=== PATIENT | male | born 1945 | race Caucasian/White ===

== ENCOUNTER → 2017-11-27 10:34 | Outpatient (CLI) | payer MEDICARE, OTHER, SELFPAY ==
--- NOTE | 2017-11-27 | DI.ECHO.S_ITS ---
[place] +---------+ : : [address] : : : : [id number] : : : : Phone: [phone]+ Echocardiogram Report + + :Name: MICHAEL RUTLEDGE Study Date: 11/27/2017 Height: 69 in : :[facility] Weight: 190 lb : : Gender: Male BSA: 2.0 m2 : :: 1945 Age: 72 yrs BP: 170/90 mmHg: :Reason For Study: Hypertension : : Performed By: Margo Christianson : :Referring: DINESH ZHENG : + + Interpretation Summary 1) Normal left ventricular thickness, size, wall motion, and systolic function (EF 55-60%). 2) Normal right ventricular size and function. 3) The left atrium is severely dilated. 4) There is mild to moderate mostly late systolic mitral regurgitation. Consider repeat echo in 2 years. 5) Hypertension present during the study (BP 170/90mmHg). Recommend further optimizing BP control. 6) No prior Echo available for comparison. Procedure: The study quality was technically good. There is no prior echocardiogram noted for this patient. The heart rate ranged between 57-60 bpm during the study. Left Ventricle: The left ventricle is normal in size. There is normal left ventricular wall thickness. The ejection fraction is estimated to be 55-60%. Left ventricular systolic function is normal without focal wall motion abnormalities. Unable to assess diastolic function as mitral inflow velocities were not done. Right Ventricle: The right ventricle grossly appears normal in size with probable normal systolic function. Atria: The left atrium is severely dilated. The right atrium is mildly dilated. The interatrial septum is intact with no evidence for an atrial septal defect. Mitral Valve: The mitral valve leaflets appear mildly thickened, but open well. The mitral valve leaflets are mildly calcified. There is mild to moderate mitral regurgitation. Aortic Valve: The aortic valve is trileaflet. The aortic valve opens well. There is no aortic valve stenosis. There is trace aortic regurgitation. Tricuspid Valve: The tricuspid valve leaflets are thin and pliable. There is mild tricuspid regurgitation. The right ventricular systolic pressure is estimated at 34 mmHg assuming a right atrial pressure of 3 mm Hg. Pulmonic Valve: The pulmonic valve is not well seen, but is grossly normal. There is trace pulmonic regurgitation. Great Vessels: The aortic root is mildly dilated. The ascending aorta is at the upper limits of normal in size. The IVC is of normal diameter and collapses greater than 50% with a sniff. This suggests a low right atrial pressure of 3 mm Hg. Pericardium/ Pleura There is no pericardial effusion. There is no pleural effusion. MMode/2D Measurements & Calculations LVIDd: 5.5 cm Ao root diam: 3.9 cm LVIDs: 4.2 cm Aortic Jxn: 3.0 cm FS: 25.1 % asc Aorta Diam: 3.7 cm EPSS: 1.1 cm Ao Arch Diam (Prox Trans): 3.4 cm IVSd: 1.0 cm LVPWd: 0.91 cm LV viramontes. diameter/BSA (cm/m^2): 2.7 LV sys. diameter/BSA (cm/m^2): 2.1 LA dimension: 4.4 cm RA long axis: 5.7 cm LA A2 area: 26.4 cm2 RA area: 24.0 cm2 LA A4 area: 29.9 cm2 RA vol: 85.8 ml LA length (vol): 6.4 cm RA : 42.5 ml/m2 LA vol: 104.6 ml IVC diam: 1.7 cm LA vol index: 51.8 ml/m2 RVDd major: 5.9 cm RVD1 (basal): 4.2 cm RVD2 (mid): 3.6 cm Doppler Measurements & Calculations Ao V2 max: 118.4 cm/sec Med Peak E' Bill: 4.0 cm/sec Ao V2 mean: 78.3 cm/sec Lat Peak E' Bill: 8.3 cm/sec Ao max P.6 mmHg MR ERO: 0.17 cm2 Ao mean P.9 mmHg Ao V2 VTI: 27.4 cm TR max bill: 283.9 cm/sec MR flow rate: 106.0 cm3/sec TR max P.2 mmHg MR PISA radius: 0.67 cm PA V2 max: 64.0 cm/sec PA V2 mean: 42.8 cm/sec PA mean P.88 mmHg PA Accel Time: 0.15 sec Reading Physician:02:07 PM
== END ==
PROVIDERS: Family Provider Internal Medicine; PCP Internal Medicine; Visit Provider Internal Medicine
DX: I08.1 Rheumatic disorders of both mitral and tricuspid valves (principal); I10 Essential (primary) hypertension
CPT/HCPCS: 93306

== ENCOUNTER 2018-10-11 07:56 | Day surgery (SDC) | payer MEDICARE, OTHER, SELFPAY ==
[2018-10-11 08:20] VITALS: BP 153/92; PULSE 72; RESP 16; TEMP 36.6; O2SAT 96; BMI 26.6
[2018-10-11] MEDS: SODIUM CHLORIDE 0.9% 1,000 ML 200 ML IV (08:25)
--- NOTE | 2018-10-11 08:35 | PM.HP.1 ---
History of Present Illness Date Patient Seen: 10/11/18 Time Patient Seen: 08:35 Chief complaint: [id number] Narrative: Here for screening colonoscopy had a polyp 5 years ago which was benign Meds Home Medications Medication Instructions Recorded Confirmed Type [TUMIREC] #0 06/11/17 History diclofenac sodium 50 mg PO AMCC #0 06/11/17 10/11/18 History olmesartan [Benicar] 40 mg PO QDAY #0 06/11/17 10/11/18 History amlodipine 5 mg PO DAILY 10/11/18 10/11/18 History Allergies Allergy/AdvReac Type Severity Reaction Status Date / Time No Known Allergies Allergy Uncoded 10/11/18 08:26 Review of Systems Review of Systems All systems reviewed & are unremarkable except as noted in HPI and below Exam Vital Signs (past 8 hours): - 10/11/18 08:20 Temperature 97.9 F Pulse Rate 72 Respiratory Rate 16 Blood Pressure 153/92 H Pulse Oximetry 96 Oxygen Delivery Method Room Air Narrative Exam Narrative: Patient is alert and oriented has no pain. Lungs are clear with no rales or wheezes Heart regular rhythm no murmur today although he states he has a history of a murmur I do not hear it. Abdomen is soft nontender no organomegaly. Rectal will be done at time of colonoscopy Assessment & Plan Assessment & Plan narrative: Patient is here for screening colonoscopy is asymptomatic had a polyp removed 5 years ago. He understands procedure and has no further questions
--- NOTE | 2018-10-11 09:06 | SUR.OPER ---
0852 RESPITORY DEPRESSION..O2 SAT IN LOW 80S, ORAL AIRWAY INSERTED AND O2 INCREASED, O2 SAT IMPROVED, AND PATIENT BREATHING 6 TO 8 BREATHS A MIN. TO PACU WITH ORAL AIRWAY
[2018-10-11 09:09] VITALS: BP 115/67; PULSE 62; RESP 12; TEMP 36.9; O2SAT 93
[2018-10-11 09:10] VITALS: BP 106/73; PULSE 70; RESP 13; O2SAT 95
[2018-10-11] MEDS: fentaNYL 250 MCG/5 ML INJ IV (09:11)
--- NOTE | 2018-10-11 09:11 | PM.OP.ENDO ---
Operative Date/Time/Diagnoses Date of procedure: 10/11/18 Time of procedure: 09:12 Pre-op diagnosis: Screening colonoscopy Post-op diagnosis: same Procedure & Clinicians Study performed: Total colonoscopy to the cecum Same procedure as scheduled: Yes Surgeon: Tirso Hanley Procedure Notes SCOAP/Timeout: Was done Procedure in detail: The patient was properly identified during surgical pause was given a total of 4 mg of Versed and 200 micro g of fentanyl throughout the procedure which was very well tolerated. The flexible fiberoptic colonoscope inserted transanally to the cecum the patient has no polyps no tumors no ulcerations no diverticulosis the procedure was well tolerated Scope withdrawal time: 10 Sedation minutes: 20 Specimen(s): none sent Impression: Normal colonoscopy today. Recommendations: Colonscopy in 10 years Disposition: PACU
[2018-10-11] MEDS: MIDAZOLAM 5 MG/5 ML VIAL IV (09:12)
[2018-10-11 09:15] VITALS: BP 108/78; BP 129/79; PULSE 69; PULSE 76; RESP 16; RESP 18; O2SAT 97
[2018-10-11 09:20] VITALS: BP 115/82; PULSE 68; RESP 17; O2SAT 97
--- NOTE | 2018-10-11 09:21 | SUR.PHASEI ---
Pt. admitted into PACU with oral airway inplace, O2 placed at 2L with NC prongs into oral airway. Pt. did respond to verbal stimuli, at which time oral airway removed and NC placed into nares. VVS, skin W/P/D.
== END 2018-10-11 10:00 | disposition home or self-care (01) ==
PROVIDERS: PCP Internal Medicine; Visit Provider Surgery
PROC: 0DJD8ZZ Inspection of Lower Intestinal Tract, Via Natural or Artificial Opening Endoscopic (ICD-10-PCS; CPT 45378; principal; 2018-10-11 09:15)
DX: Z86.010 Personal history of colon polyps (principal)
CPT/HCPCS: G0105; 99152; J2250; J3010

== ENCOUNTER → 2019-08-09 08:26 | Outpatient (CLI) | payer MEDICARE, OTHER, SELFPAY ==
[2019-08-09 09:18] LABS: Add Manual Diff / Slide Review NO; Basophils Absolute Auto 100 /uL (0-100); Eosinophils Absolute Auto 400 /uL (0-450); Hemoglobin 14.9 g/dL (13.5-17.5); Lymphocytes Absolute Auto 1500 /uL (1100-4500); Lymphocytes Percent Auto 24.8 % (25-40); Mean Corpuscular HGB Conc 34.5 % (30-36); Mean Corpuscular Hemoglobin 30.8 PG (26-34); Mean Corpuscular Volume 89.2 fL (80-100); Monocytes Absolute Auto 600 /uL (0-900); Neutrophils Absolute Auto 3400 /uL (1500-7000); Neutrophils Percent Auto 58.2 % (50-75); Platelet Count 167 X10^3/uL (150-400); Red Blood Cell Count 4.82 X10^6/uL (4.5-5.9); Red Cell Distribution Width 13.8 % (11.6-14.8); White Blood Cell Count 5.9 X10^3/uL (4.5-11.0)
[2019-08-09 09:38] LABS: Alanine Aminotransferase 22 IU/L (<50); Albumin 4.2 g/dL (3.5-5.0); Albumin Globulin Ratio 1.6 (1.0-2.8); Alkaline Phosphatase 73 U/L (38-126); Aspartate Aminotransferase 33 IU/L (17-59); BUN Creatinine Ratio 20.9 (6-22); Blood Urea Nitrogen 18 mg/dL (9-20); Calcium 9.8 mg/dL (8.4-10.2); Carbon Dioxide 26 mmol/L (22-32); Chloride 104 mmol/L (98-107); Cholesterol 204 mg/dL (140-199); Estimated Glomerular Filt Rate > 60.0 mL/min (>60); Globulin 2.7 g/dL (1.7-4.1); Glucose 98 mg/dL (80-110); HDL Cholesterol 36 mg/dL (40-60); HEMOLYSIS < 15 (0-50); LDL Cholesterol Calculated 147 mg/dL (<100); Potassium 4.3 mmol/L (3.4-5.1); Sodium 138 mmol/L (137-145); Total Protein 6.9 g/dL (6.3-8.2); Triglycerides 104 mg/dL (35-150)
== END ==
PROVIDERS: PCP Internal Medicine; Referring Provider Internal Medicine; Visit Provider Internal Medicine
DX: I10 Essential (primary) hypertension (principal); M15.0 Primary generalized (osteo)arthritis; I34.9 Nonrheumatic mitral valve disorder, unspecified
CPT/HCPCS: 36415; 80053; 80061; 85025

== ENCOUNTER → 2019-10-14 08:28 | Outpatient (CLI) | payer MEDICARE, OTHER, SELFPAY ==
[2019-10-14 10:06] LABS: Cholesterol 183 mg/dL (140-199); HDL Cholesterol 41 mg/dL (40-60); LDL Cholesterol Calculated 121 mg/dL (<100); Triglycerides 106 mg/dL (35-150)
== END ==
PROVIDERS: PCP Internal Medicine; Referring Provider Internal Medicine; Visit Provider Internal Medicine
DX: E78.2 Mixed hyperlipidemia (principal)
CPT/HCPCS: 36415; 80061

== ENCOUNTER 2019-12-13 12:29 | Emergency (ER) | payer MEDICARE, OTHER, SELFPAY ==
[2019-12-13 12:36] VITALS: BP 186/85; PULSE 67; RESP 14; TEMP 36.9; O2SAT 99
--- NOTE | 2019-12-13 12:44 | ED_ITS ---
HPI - Fall General Chief Complaint: Fall Stated Complaint: right shoulder injury Time Seen by Provider: 12/13/19 12:32 Source: patient Mode of arrival: Ambulatory Limitations: no limitations History of Present Illness HPI Narrative: 74-year-old male here for evaluation of right shoulder injury. Patient states that he tripped over some wires that he was working around earlier today and he fell onto his right shoulder. He states that he tucked his arm against his side when he fell so he landed on the outside of his arm. He did not hit his head. No loss of consciousness. But some ?KT ?tape over the area. No elbow wrist or neck pain. Related Data Home Medications Medication Instructions Recorded Confirmed [TUMIREC] #0 06/11/17 diclofenac sodium 50 mg PO AMCC #0 06/11/17 10/11/18 olmesartan [Benicar] 40 mg PO QDAY #0 06/11/17 10/11/18 amlodipine 5 mg PO DAILY 10/11/18 10/11/18 Previous Rx's Medication Instructions Recorded tramadol [Ultram] 50 mg PO Q8H PRN #10 tab 12/13/19 Allergies Allergy/AdvReac Type Severity Reaction Status Date / Time No Known Allergies Allergy Uncoded 10/11/18 08:26 Review of Systems Constitutional Constitutional: Denies frequent falls and Denies headache(s) ENT Ears, Nose, Mouth, and Throat: Denies headache(s) Cardiovascular Cardiovascular: Denies chest pain and Denies dyspnea Respiratory Respiratory: Denies dyspnea Gastrointestinal Gastrointestinal: Denies abdominal pain Musculoskeletal Musculoskeletal: Denies tingling Comments: Right shoulder pain Integumentary/Breasts Skin/Breast: Denies rash Neurologic Neurologic: Denies behavioral changes, Denies frequent falls, Denies headache(s) and Denies tingling Psychiatric Psychiatric: Denies behavioral changes Hematologic/Lymphatic Hematologic/Lymphatic: Denies easy bleeding and Denies easy bruising Patient History Medical History Flu (Inactive) Social History lives independently: Yes Exam Initial Vital Signs Initial Vital Signs: Vital Signs Temperature 98.5 F 12/13/19 12:36 Pulse Rate 67 12/13/19 12:36 Respiratory Rate 14 12/13/19 12:36 Blood Pressure 186/85 H 12/13/19 12:36 Pulse Oximetry 99 12/13/19 12:36 Const General: cooperative Limitations: mental status not altered HENMT Head: normal to inspection and normocephalic Resp Effort & Inspection: normal respiratory effort Back/Spine/Pelvis Cervical Spine: No cervical spinal tenderness Skin Lesions: no lesions Rashes: no rashes Neuro Sensory Exam: no sensory deficits noted Extrem General: capillary refill normal Other: Right elbow and right wrist unremarkable. Patient very difficult time moving the right shoulder secondary to pain. Course Orders Ordered: ED Orders 12/13/19 12:42 XR shoulder RT min 2V Stat Vital Signs Vital signs: Vital Signs - 8 hr 12/13/19 12:36 Temperature 98.5 F Pulse Rate 67 Respiratory Rate 14 Blood Pressure 186/85 H Pulse Oximetry 99 MDM - Fall Imaging Data Extremity x-ray #1: Radiologist's Impression: [address] [address] XRay Report Signed Patient: Portillo Medina BMR#: [id number] : 6Acct:[id number] Age/Sex: 74 / MDate of Service: 12/13/19 Loc: ED Accession Number: [id number] Procedure: XR shoulder RT min 2V Ordering Provider: Scott Pablo D.O. PROCEDURE: XR SHOULDER RT MIN 2V INDICATIONS: pain after fall TECHNIQUE: 3 views of the shoulder were acquired. COMPARISON: [facility], , CHEST 2 VIEW, 06/11/2017, 7:58. FINDINGS: Bones: No fractures or dislocations. There is moderate acromioclavicular joint degeneration. No suspicious bony lesions. Visualized ribs appear intact. Soft tissues: No suspicious soft tissue calcifications. The visualized right lung demonstrates a right perihilar nodular opacity measuring up to 2.0 cm. IMPRESSION: 1. No fracture or dislocation. 2. Right perihilar nodular opacity demonstrated in the visualized right lung. Although this may represent a prominent vessel on end, a pulmonary nodule cannot be excluded. Recommend dedicated chest x-ray for further evaluation. 3. Moderate acromioclavicular joint degeneration. Dictated by: Maurice Lau M.D. on 12/13/2019 at 12:09 Approved by: Maurice Lau M.D. on 12/13/2019 at 12:20 MDM Narrative Medical decision making narrative: Patient neurovascularly intact. X-ray shows no fracture dislocation. Patient did have quite a bit of discomfort with even minor movements of his shoulder so I felt that holding on further workup to evaluate a potential soft tissue injury to include rotator cuff or biceps tendon injury would not be beneficial here in the ER. I did discuss this with him. He has a follow-up with his primary doctor next week. Patient already had a sling. He was sent home with a sling. We did discuss it is important that he comes out of the sling as much as possible. We did discuss anti-inflammatories. No other injuries were reported from the fall per the patient and also on exam. He was given return precautions and follow-up instructions. He expressed understanding and agreement. Discharge Plan Departure Patient Disposition: Home Clinical Impression: Injury of right shoulder Qualifiers: Encounter type: initial encounter Qualified Code(s): S49.91XA - Unspecified injury of right shoulder and upper arm, initial encounter Discharge Date/Time: 12/13/19 14:15 Instructions: How to Use a Sling, How To Perform RICE (Rest, Ice, Compress, Elevate), DI for Shoulder Pain Activity Restrictions/Additional Instructions: Recommend that you use the sling for your comfort. You can take it off to shower. I do recommend that you spend as much time out of the sling as possible. Take the medication as directed. Keep your appointment with your primary doctor tomorrow. Return to the emergency department for any new or worsening symptoms Prescriptions: New tramadol [Ultram] 50 mg tablet 50 mg PO Q8H PRN (Reason: pain) Qty: 10 RF: 0 No Action diclofenac sodium 50 MG tablet,delayed release (DR/EC) 50 mg PO AMCC Qty: 0 RF: 0 olmesartan [Benicar] 40 MG tablet 40 mg PO QDAY Qty: 0 RF: 0 [TUMIREC] Qty: 0 RF: 0 amlodipine 5 mg Tablet 5 mg PO DAILY RF: 0 Referrals: Jorden Elizondo MD [Primary Care Provider] -
== END 2019-12-13 14:15 | disposition home or self-care (01) ==
PROVIDERS: Emergency Provider Emergency Medicine; PCP Internal Medicine
DX: S49.91XA Unspecified injury of right shoulder and upper arm, initial encounter (principal); W19.XXXA Unspecified fall, initial encounter
CPT/HCPCS: 73030; 99283

== ENCOUNTER → 2019-12-16 08:38 | Outpatient (CLI) | payer MEDICARE, OTHER, SELFPAY ==
[2019-12-16 09:08] LABS: Add Manual Diff / Slide Review NO; Basophils Absolute Auto 100 /uL (0-100); Basophils Percent Auto 0.9 % (0-2); Eosinophils Absolute Auto 300 /uL (0-450); Eosinophils Percent Auto 4.2 % (2-4); Hematocrit 42.7 % (41-53); Hemoglobin 14.7 g/dL (13.5-17.5); Lymphocytes Absolute Auto 1700 /uL (1100-4500); Lymphocytes Percent Auto 23.2 % (25-40); Mean Corpuscular HGB Conc 34.5 % (30-36); Mean Corpuscular Hemoglobin 31.2 PG (26-34); Mean Corpuscular Volume 90.3 fL (80-100); Monocytes Absolute Auto 700 /uL (0-900); Monocytes Percent Auto 9.8 % (3-14); Neutrophils Absolute Auto 4400 /uL (1500-7000); Neutrophils Percent Auto 61.9 % (50-75); Platelet Count 159 X10^3/uL (150-400); Red Blood Cell Count 4.73 X10^6/uL (4.5-5.9); Red Cell Distribution Width 13.4 % (11.6-14.8); White Blood Cell Count 7.1 X10^3/uL (4.5-11.0)
[2019-12-16 09:28] LABS: Alanine Aminotransferase 22 IU/L (<50); Albumin Globulin Ratio 1.4 (1.0-2.8); Alkaline Phosphatase 71 U/L (38-126); Aspartate Aminotransferase 34 IU/L (17-59); BUN Creatinine Ratio 23.8 (6-22); Bilirubin Total 1.2 mg/dL (0.2-1.3); Blood Urea Nitrogen 20 mg/dL (9-20); Carbon Dioxide 29 mmol/L (22-32); Chloride 105 mmol/L (98-107); Cholesterol 198 mg/dL (140-199); Estimated Glomerular Filt Rate > 60.0 mL/min (>60); Globulin 2.8 g/dL (1.7-4.1); Glucose 96 mg/dL (80-110); HDL Cholesterol 40 mg/dL (40-60); HEMOLYSIS < 15 (0-50); LDL Cholesterol Calculated 136 mg/dL (<100); Potassium 4.3 mmol/L (3.4-5.1); Sodium 138 mmol/L (137-145); Total Protein 6.8 g/dL (6.3-8.2); Triglycerides 108 mg/dL (35-150)
== END ==
PROVIDERS: PCP Internal Medicine; Referring Provider Internal Medicine; Visit Provider Internal Medicine
DX: E78.2 Mixed hyperlipidemia (principal); I10 Essential (primary) hypertension; M15.0 Primary generalized (osteo)arthritis
CPT/HCPCS: 36415; 80053; 80061; 85025

== ENCOUNTER → 2020-03-20 18:45 | Outpatient (ROUT) | payer MEDICARE, OTHER, SELFPAY ==
[2020-03-20 19:03] LABS: Add Manual Diff / Slide Review NO; Basophils Absolute Auto 100 /uL (0-100); Basophils Percent Auto 0.7 % (0-2); Eosinophils Absolute Auto 300 /uL (0-450); Eosinophils Percent Auto 3.6 % (2-4); Hematocrit 43.6 % (41-53); Hemoglobin 14.7 g/dL (13.5-17.5); Lymphocytes Absolute Auto 2000 /uL (1100-4500); Lymphocytes Percent Auto 23.9 % (25-40); Mean Corpuscular HGB Conc 33.6 % (30-36); Mean Corpuscular Hemoglobin 30.9 PG (26-34); Mean Corpuscular Volume 91.8 fL (80-100); Monocytes Absolute Auto 800 /uL (0-900); Monocytes Percent Auto 9.5 % (3-14); Neutrophils Absolute Auto 5200 /uL (1500-7000); Neutrophils Percent Auto 62.3 % (50-75); Platelet Count 192 X10^3/uL (150-400); Red Blood Cell Count 4.75 X10^6/uL (4.5-5.9); White Blood Cell Count 8.4 X10^3/uL (4.5-11.0)
[2020-03-20 19:16] LABS: BUN Creatinine Ratio 19.6 (6-22); Blood Urea Nitrogen 20 mg/dL (9-20); Calcium 9.2 mg/dL (8.4-10.2); Carbon Dioxide 30 mmol/L (22-32); Chloride 106 mmol/L (98-107); Estimated Glomerular Filt Rate > 60.0 mL/min (>60); Glucose 97 mg/dL (80-110); HEMOLYSIS < 15 (0-50); Potassium 4.4 mmol/L (3.4-5.1); Sodium 139 mmol/L (137-145)
== END ==
PROVIDERS: PCP Internal Medicine; Visit Provider Student in an Organized Health Care Education/Training Program
DX: Z01.818 Encounter for other preprocedural examination (principal); M48.07 Spinal stenosis, lumbosacral region
CPT/HCPCS: 80048; 85025

== ENCOUNTER → 2020-03-28 09:28 | Outpatient (CLI) | payer MEDICARE, OTHER, SELFPAY ==
[2020-03-28 10:47] LABS: COVID19 -Nasal RAPID Negative (Negative)
== END ==
PROVIDERS: PCP Internal Medicine; Visit Provider Physician Assistant
DX: Z20.822 Contact with and (suspected) exposure to COVID-19 (principal)
CPT/HCPCS: 87635

== ENCOUNTER 2020-03-31 09:35 | Inpatient (IN) | payer MEDICARE, OTHER, SELFPAY ==
[2020-03-31] VITALS (16 sets, daily range): BP systolic 95–166; BP diastolic 57–90; PULSE 64–83; RESP 8–18; TEMP 36.7–37.4; O2SAT 84–100; BMI 28.3
--- NOTE | 2020-03-31 | DI.RAD.S_ITS ---
PROCEDURE: XR LUMBAR SPINE 2-3V INDICATIONS: L5-S1 FUSION TECHNIQUE: 2 views of the lumbar spine were acquired. COMPARISON: None. FINDINGS: Intraoperative images demonstrate posterior fusion at L5-S1. Intervertebral prosthetic disc is noted. There is good anatomic alignment. IMPRESSION: L5-S1 fusion. Dictated by: Romelia Marie M.D. on 03/31/2020 at 17:22 Approved by: Romelia Marie M.D. on 03/31/2020 at 17:22
[2020-03-31] MEDS: LACTATED RINGERS 1,000 ML 42 ML IV ×2 (10:29→13:06)
--- NOTE | 2020-03-31 10:59 | PM.PREOP ---
Pre-operative Note COVID-19 COVID-19 status: Negative Result date/Date tested (Pos, Neg/Pending): 03/28/20 Interval Note History & Physical reviewed/Exam performed by Physician: Yes Changes to H&P: No
[2020-03-31] MEDS: CEFAZOLIN 2 GM/100 ML FROZ.PIGGY IV ×2 (12:00→20:46)
[2020-03-31] MEDS: BUPIVACAINE 0.5% (PF) 4 ML, MORPHINE-PF 4 MG, BUTORPHANOL 1 MG, fentaNYL 100 MCG INJ (12:30)
--- NOTE | 2020-03-31 12:47 | SUR.OPER ---
Prone on spine table, head in foam head support, padded chest and pelvic supports, gel pad at knees, lower legs supported by pillows; nipples, genitalia and toes free of pressure, arms secured on foam padded arm boards at <90 degrees abduction. Tape over blanket at thigh secured to table.
[2020-03-31] MEDS: THROMBIN (RECOMBINANT) 5,000 UNIT VIAL 5000 UNIT TOP (13:08)
[2020-03-31] MEDS: SODIUM CHLORIDE 0.9% 1,000 ML, GENTAMICIN 80 MG IRR (13:09)
[2020-03-31] MEDS: VANCOMYCIN 1,000 MG VIAL 1000 MG TOP (13:17)
--- NOTE | 2020-03-31 16:00 | P.OP_ITS ---
Operative Date/Time/Diagnoses Date of procedure: 03/31/20 Time of procedure: 16:00 Pre-op diagnosis: Lumbar stenosis with radiculopathy Post-op diagnosis: same Procedure & Clinicians Procedure: L2-3, L3-4, L4-5, L5-S1 laminectomy L5-S1 TLIF (posterior/posterior interbody fusion) with cage L5-S1 screws Iliac crest bone graft aspirate Use of microscope Placement of epidural catheter Same procedure as scheduled: Yes Indications: [age] year old [] with intractable pain from stenosis. They had failed conservative management and requested operative intervention. Risks and benefits of surgery were discussed and appropriate consents were obtained. Surgeon: Silver Odom [employer] Sciences Director: Merlene Flood Anesthesia Type: General Operative Notes Findings: None Closure Type: primary Specimen(s): none sent Prosthetic devices, grafts, tissues, transplants, or devices: NuVasive MAS Reline screws Globus Rise cage Applied: catheter Estimated Blood Loss (mL): 50 Procedure in detail: The patient was brought to the operating room and intubated on the table. A time-out was performed. They were then rolled over to the well-padded Inocencio table in the prone position. Preoperative antibiotics were given. The back was prepped and draped in the standard sterile fashion. Using fluoroscopy, a 10 cm longitudinal incision was made to the lumbar type of the midline. We used Bovie to come down to and split the lumbodorsal fascia. Using fluoroscopy and monitoring, we then percutaneously placed Jamshidi needles down the pedicles of L5 and S1 on the left side. These were changed out to guidewires and then we tapped and then placed the NuVasive MAS Reline screw shanks. We then opened up the retractors and used Bovie to clear up the posterolateral gutter as well as medially along the lamina to the spinous processes. A bur was used to decorticate the transverse processes. We brought in the microscope. Using a combination of bur and Kerrison rongeurs, a laminectomy was performed from the left side. He had massive ingrowth from his facets that were slowly cleared out in the canal to clear out the S1 roots. We cleared over past the midline and carefully depressed the dura until we were able to decompress the opposite side. We cleared out the neural foramen which required a complete facetectomy until the nerve root was finally exposed. This was separate and distinct from the TLIF approach as we were decompressing the canal with the S1 roots as well as the exiting L5 root. We then began the TLIF prep. We carefully cleaned up the remainder of the foramen until we could easily retract the exiting root as well as clearing medially below the dura and expose the disc space. The disc was prepped with bipolar and then an annulotomy was performed. He had some posterior overgrowth of of the osteophyte and this was removed until we could expose the disc space. We performed a diskectomy using a combination of paddles, aleyda, pituitaries, and curettes. We distracted the disc using a paddle and locked the retractor in an open position. We then filled the disc space with Osteocel bone graft. We then placed the globus rise cage under fluoroscopy and then filled this in with more bone graft. The distraction on the retractor was released to compress down. This completed the posterior interbody fusion portion of the TLIF at L5- S1. We then opened up our retractor at the L4-5 level and and confirm positioning. We performed a laminectomy at this level, carefully depressing the dura and clearing across the midline to open up the entire canal with the traversing L5 and S1 roots as well as clearing out the foramen with the exiting L4 roots. We then moved up to the L3-4 level and also performed a laminectomy here, clearing across the midline and freeing up all the central canal with the L4 through S1 traversing roots as well as the exiting L3 roots. We then moved to the L2-3 level also performed laminectomy, clear across the midline, freeing up the canal with the L3 through S1 traversing roots as well as the exiting L2 roots. An epidural catheter was then prepped with 4 mL of 0.5% Marcaine, 1 mg Stadol, 4 mg Duramorph, and 100 mcg of fentanyl and placed in the spinal canal by carefully depressing the dura and advancing it 6 cm cephalad under the remaining lamina without resistance. We then placed the screw heads, jeancarlos, and locked down the set screws. The wound was copiously irrigated. A small stab incision was made over the PSIS. We used a Jamshidi needle to aspirate several mL of bone marrow from the pelvis. This was mixed with the remaining Osteocel and combined with all of the locally harvested bone graft and placed in the posterolateral gutter for the posterior fusion of the TLIF at L5- S1. The muscle fascia was closed. The epidural catheter was then injected without resistance and the catheter was pulled. We then went to the opposite side. Again using fluoroscopy, a 3 cm incision was made and Bovie was used to come down to split the fascia. Using neural monitoring and fluoroscopy, Jamshidi needles were advanced down the pedicles of L5 and S1 on the right side. These were switched over guidewires, tapped, and screws placed. We then placed a jeancarlos and locked the set screws on this side. The wound was irrigated. The fascia was closed. Vancomycin powder was placed in the wounds. The superficial and skin were closed. A sterile dressing was placed. The patient was then rolled over extubated and brought to recovery room without complications. Complications: none Post-operative Condition: stable Disposition: PACU Plan for aftercare: Inpatient. Up with PT.
[2020-03-31] MEDS: LACTATED RINGERS 1,000 ML 125 ML IV (17:52)
[2020-03-31] MEDS: CELECOXIB 200 MG CAPSULE 400 MG PO (18:01)
[2020-03-31] MEDS: DOCUSATE 100 MG CAPSULE PO (20:47)
[2020-03-31] MEDS: MAGNESIUM OXIDE 400 MG TABLET PO (20:47)
[2020-03-31] MEDS: GABAPENTIN 300 MG CAPSULE PO (20:47)
[2020-03-31] MEDS: CELECOXIB 200 MG CAPSULE PO (21:02)
[2020-03-31] MEDS: OXYCODONE IR 10 MG TABLET PO (21:52)
[2020-04-01] VITALS (7 sets, daily range): BP systolic 105–148; BP diastolic 59–77; PULSE 68–98; RESP 15–17; TEMP 36.6–37.6; O2SAT 92–98
[2020-04-01] MEDS: LACTATED RINGERS 1,000 ML 125 ML IV (02:08)
[2020-04-01] MEDS: OXYCODONE IR 10 MG TABLET PO ×6 (02:56→20:18)
[2020-04-01] MEDS: CEFAZOLIN 2 GM/100 ML FROZ.PIGGY IV (04:04)
[2020-04-01 05:20] LABS: Hematocrit 36.1 % (41-53)
--- NOTE | 2020-04-01 07:21 | PM.PNPO.1 ---
Subjective Subjective Date Patient Seen: 04/01/20 Time Patient Seen: 07:21 Interval history: He is doing well. Pain is about 4/10. Exam Vital Signs (past 8 hours): - 03/31/20 23:55 04/01/20 04:00 Temperature 99 F 98.5 F Pulse Rate 79 98 H Respiratory Rate 18 16 Blood Pressure 95/57 L 113/69 Pulse Oximetry 97 98 Oxygen Delivery Method Room Air Oxygen Flow Rate 0 Const Orientation: alert and oriented x3 Back/Spine/Pelvis Other: Mild dry drainage. 5/5 motor both lower extremities Objective Labs Result Diagrams: 04/01/20 04:58 Labs: Laboratory Results - last 24 hr 04/01/20 04:58 Hgb 12.0 L Hct 36.1 L PFSH Medical History (Updated 03/25/20 @ 15:54 by Magali Garcia RN) Back pain Bradycardia Cataract (lens) fragments in eye following cataract surgery, bilateral Flu Hypertension Lumbar stenosis with neurogenic claudication Osteoarthritis Strain of lumbar region Surgical History (Updated 03/25/20 @ 16:04 by Magali Garcia RN) History of eye surgery History of total shoulder replacement (~2017) S/P epidural steroid injection Social History household members: spouse lives independently: Yes Smoking Status: Former smoker alcohol intake: current Assessment & Plan Post-op Postoperative Procedures: Procedures Operation Date: 03/31/20 11:15 Actual Procedures Side Surgeon p L2-S1 laminectomies, L5-S1 instrumented fusion w/bone graft Silver Odom MD He is doing well. Mobilize with physical therapy. Anticipate discharge tomorrow. Quality VTE Deep Vein Thrombosis/Pulmonary Embolism Present on Admission: No
[2020-04-01] MEDS: CELECOXIB 200 MG CAPSULE PO ×2 (09:32→20:20)
[2020-04-01] MEDS: DOCUSATE 100 MG CAPSULE PO ×2 (09:32→20:18)
[2020-04-01] MEDS: MULTIVITAMIN 1 TABLET 1 TAB PO (09:33)
[2020-04-01] MEDS: ASCORBIC ACID 500 MG TABLET 1000 MG PO (09:33)
[2020-04-01] MEDS: MAGNESIUM OXIDE 400 MG TABLET PO ×2 (09:34→20:19)
--- NOTE | 2020-04-01 09:56 | PT.IIE ---
Current Diagnoses Spinal stenosis, lumbar region with neurogenic claudication (03/31/20) Strain of muscle, fascia and tendon of lower back, subsequent encounter (03/31/20) Surgery Performed Operation Date: 03/31/20 11:15 Actual Procedures p L2-S1 laminectomies, L5-S1 instrumented fusion w/bone graft - Silver Odom MD Surgical History (Last Updated 03/25/20 @ 16:04 by Magali Garcia, RN) History of eye surgery History of total shoulder replacement (~2017) S/P epidural steroid injection Medical History (Last Updated 03/25/20 @ 15:54 by Magali Garcia, RN) Back pain Bradycardia Cataract (lens) fragments in eye following cataract surgery, bilateral Flu Hypertension Lumbar stenosis with neurogenic claudication Osteoarthritis Strain of lumbar region Physical Therapy Inpatient Evaluation/Re-Eval M1 PT/OT-IP Prior Functional Status Start: 04/01/20 11:17 Freq: NEEDED Status: Active Protocol: Document 04/01/20 09:56 AB (Rec: 04/01/20 11:36 AB [id number]) Medical Review Prior Functional Status Medical History Reviewed Yes Communication able to make needs known Mobility and Gait pt stated that he is independent with all mobilities and ambulation without AD Social History Household Members spouse Living Arrangements House Number of Floors (Floors) One Floor Number of Stairs To Enter/Railing? 5 steps to enter with B rails Home Environment Standard Height Toilet,Walk in Shower,Built-In Shower Seat Home Equipment Straight Cane,Crutches,Hand Held Shower Employment Status Retired Additional Social History Comment stated that he has bedcanes that he can install in his bed if needed M2 PT-IP Current Condition Start: 04/01/20 11:17 Freq: NEEDED Status: Active Protocol: Document 04/01/20 09:56 AB (Rec: 04/01/20 11:36 AB [id number]) Physical Therapy Current Condition Current Condition Evaluation Date 04/01/20 Treatment Diagnosis s/p L5S1 fusion; L2-S1 lami; difficulty in walking Onset Date 03/31/20 Precautions Lumbar Precautions Log Roll,No Twisting,Limit Bending,Lifting Restriction of 10 lbs,Gait Belt above Incisional Area M3 PT-IP Subjective Start: 04/01/20 11:17 Freq: NEEDED Status: Active Protocol: Document 04/01/20 09:56 AB (Rec: 04/01/20 11:36 AB [id number]) Subjective Physical Therapy Visit Type Type Initial Evaluation Visit Start Time 09:56 Visit Stop Time 10:39 Total Visit Minutes [address] 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 Physical Therapy Visit Comments Patient Comments pt is agreeable to do PT Therapy Pain Assessment Pain When Pain Assessed At Rest Pain Present Pain Present Pain Reported Location Back Intensity 4 Scale Used Numeric (0 - 10) Pain Management Techniques Apply Cold,Distraction, Modification of Treatment,Re- positioning,Timing of Activity with Medications M4 PT-IP Mobility and Gait Start: 04/01/20 11:17 Freq: NEEDED Status: Active Protocol: Document 04/01/20 09:56 AB (Rec: 04/01/20 11:36 AB [id number]) PT-Bed Mobility Assessment Rolling Type of Rolling Log Rolling Level of Assist Standby Assistance Supine to Sit Supine to Sit Standby Assistance PT-Transfer Assessment Sit to and From Stand Sit to and from Stand Standby Assistance Equipment Transfer Assistive Device Gait Belt Orthotic/Prosthetic Devices or Brace: No Transfers Transfer Destination Chair Transfer Technique ambulated using FWW Transfer Ability Level of Assist Standby Assistance,1 Person Assistance,Use of Upper Extremities Comments Mobility Comments educated on back precautions and log roll bed mobility. BP: 122/65. O2 sat 99% completed supine to sit SBA and cues for techniques. pt was able to sit on EOB SBA. completed sit to stand SBA and ambulated in room using FWW ~ 50 ft SBA . agreed to sit on chair. positioned on chair. call light and table placed within reach. informed pt regarding need for FWW at this time and agreed to inform his to get/ borrow one for him. Gait Assessment Gait Gait Assistance Required: Standby Assistance Distance (Feet) 50 Able to Maintain Weight Bearing Status Yes During Gait Assistive Devices Assistive Device Gait Belt,Front Wheeled Walker Orthotic/Prosthetic Devices or Brace: No Gait Deviations General Gait Pattern Antalgic,Decreased Stride Length,Decreased Feet Clearance Factors Limiting Gait Function Factors Limiting Gait Function Decreased Activity Tolerance, Decreased Strength,Limited Range of Motion,Pain,Poor Balance,Poor Safety Awareness PT-Balance Assessment Sitting Balance and Reactions Static Sitting Balance Ability Good Dynamic Sitting Balance Ability Good Standing Balance and Reactions Static Standing Balance Ability Fair Dynamic Standing Balance Ability Fair Device Used FWW M5 PT-IP Objective Assessments Start: 04/01/20 11:17 Freq: NEEDED Status: Active Protocol: Document 04/01/20 09:56 AB (Rec: 04/01/20 11:36 [id number]) Orientation Orientation/Cognition Level of Alertness Alert Orientation Name,Age,Birthday,Month,Date, Year,Day of Week,Place, Situation Language Function Ability No Deficits Noted Safety Awareness Understands Safety Issues Memory Description No Deficits Noted Gross Range of Motion Lower Extremity ROM Assessment Within Functional Limits Strength Lower Extremity Strength Assessment Within Functional Limits Coordination Assessment Gross Coordination Gross Coordination WNL Sensation Assessment Sensation Gross Sensation WNL Muscle Tone Muscle Tone WNL Yes M6 PT-IP Treatment Start: 04/01/20 11:17 Freq: NEEDED Status: Active Protocol: Document 04/01/20 09:56 AB (Rec: 04/01/20 11:36 [id number]) Physical Therapy Treatment Education Education Provided Precautions,Weight Bearing Status,Post-Op Packet,Safety M7 PT-IP Assessment and Plan Start: 04/01/20 11:17 Freq: NEEDED Status: Active Protocol: Document 04/01/20 09:56 AB (Rec: 04/01/20 11:36 [id number]) PT Summary Assessment and Plan Potential Rehabilitation Potential Good Status of Condition at Evaluation Stable Summary Impairments Pain,ROM,Strength,Balance, Coordination,Sensation,Tone, Cognition,Bed Mobility, Transfers,Gait,Activity Tolerance Assessment Summary pt requiring SBA with mobility and will have his spouse to assist him at home. informed pt regarding use of FWW and will ask his to acquire one fo him. will have to complete stair climbing training prior to d/c. Goals Bed Mobility Goal Independent Transfer Goal Independent,Front Wheeled Walker Gait Goal Independent,Front Wheel Walker Gait Distance 200 Other Goals improve ambulation using SPC SBA 200 ft up/down 5 steps B rails SBA Days to Meet Goals 5 Frequency of Treatment Frequency Of Treatment Twice a Day Treatment Plan Physical Therapy Treatment Plan Bed Mobility Training,Transfer Training,Gait Training, Therapeutic Exercise,Balance Retraining,Post Op Education, Discharge Planning,Hot or Cold Pack,Neuromuscular Re-ed, Coordination Retraining,Manual Therapy Other Recommendations and Next Treatment bed mobility, ambulation, Focus stair climbing Recommendations To Nursing Amount of Assist Needed 1 Person Assist Discharge Recommendations PT Discharge Recommendations Home with Assistance Equipment Needed for Home Before FWW Discharge Transportation Needs at Discharge Private Vehicle
--- NOTE | 2020-04-01 11:00 | OT.IP.EVAL ---
Current Diagnoses Spinal stenosis, lumbar region with neurogenic claudication (03/31/20) Strain of muscle, fascia and tendon of lower back, subsequent encounter (03/31/20) Surgery Performed Operation Date: 03/31/20 11:15 Actual Procedures p L2-S1 laminectomies, L5-S1 instrumented fusion w/bone graft - Silver Odom MD Past Medical History (Last Updated 03/25/20 @ 15:54 by Magali Garcia, RN) Back pain Bradycardia Cataract (lens) fragments in eye following cataract surgery, bilateral Flu Hypertension Lumbar stenosis with neurogenic claudication Osteoarthritis Strain of lumbar region Surgical History (Last Updated 03/25/20 @ 16:04 by Magali Garcia, RN) History of eye surgery History of total shoulder replacement (~2017) S/P epidural steroid injection Occupational Therapy Inpatient Evaluation/Re-Eval M1 PT/OT-IP Prior Functional Status Start: 04/01/20 13:18 Freq: NEEDED Status: Active Protocol: Document 04/01/20 10:34 [facility] (Rec: 04/01/20 13:30 [facility] [id number]) Medical Review Prior Functional Status Medical History Reviewed Yes Communication able to make needs known Mobility and Gait pt stated that he is independent with all mobilities and ambulation without AD Activities of Daily Living and IADL's Independent with all his ADl, IADL,and drives, Social History Household Members spouse Living Arrangements House Number of Floors (Floors) One Floor Number of Stairs To Enter/Railing? 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 (Rec: 04/01/20 13:30 [facility] [id number]) Occupational Therapy Current Condition Current Condition Evaluation Date 04/01/20 Treatment Diagnosis S/P L2-S1 laminectomies, L5- S1TLIF Diagnosis Onset Date 03/31/20 Post Operative Precautions Lumbar Precautions Log Roll,No Twisting,Limit Bending,Lifting Restriction of 10 lbs,Gait Belt above Incisional Area M3 OT- IP Subjective and Pain Start: 04/01/20 13:18 Freq: Status: Active Protocol: Document 04/01/20 10:34 [facility] (Rec: 04/01/20 13:30 [facility] [id number]) OT- Subjective Occupational Therapy Visit Type Type Initial Evaluation Visit Start Time 10:34 Visit Stop Time 11:00 Total Visit Minutes 26 Occupational Therapy Visit Comments Patient Comments Pt agreed to get up for OT eval. Patient/Caregiver Goals To go home and get back to climbing eventually. OT Pain Assessment Pain When Pain Assessed At Rest Pain Present Pain Present Pain Reported Location Back Intensity 5 Scale Used Numeric (0 - 10) M4 OT- IP ADL's Start: 04/01/20 13:18 Freq: Status: Active Protocol: Document 04/01/20 10:34 [facility] (Rec: 04/01/20 13:30 [facility] [id number]) OT [id number] Comments OT Self-Feeding Comments NOt at meeal time, should have no issues OT ADL-Grooming General Evaluation Grooming Ability Standby Assistance Areas Needing Assistance Retrieving/Set-up of Grooming Items OT ADL-Oral Care General Eval Oral Care Ability Independent Comments Oral Care Comments Initial vc to lean at hips to spit into the sink versus spit into a cup to best follow his back precautions. OT ADL-Dressing General Eval Lower Body Dressing Ability Standby Assistance Comments OT Dressing Comments Pt able to comfortably cross his legs over to del/doff his socks. Pt also has a legal referee at home if needed to assist with LB dressing needs in addition to his . OT ADL-Toileting General Evaluation Toileting Ability Standby Assistance Comments OT Toileting Comments Pt able to appropriately lean to the side to simulate wiping and good awareness to use wipes for increase ease for hygiene needs. OT ADL-Bathing Comments OT Bathing Comments Not at this time. M5 OT- IP IADL's Start: 04/01/20 13:18 Freq: Status: Active Protocol: Document 04/01/20 10:34 [facility] (Rec: 04/01/20 13:30 [facility] [id number]) OT-Instrumental Activities of Daily Living Home Safety Awareness Awareness of Need for Assistance at Home Good Awareness Ability to Problem Solve Emergency Able to Problem Solve Situations Medication Management Medication Management No Deficits Identified Money Management Money Management No Deficits Identified Meal Preparation Meal Preparation Caregiver Provides Assist Compounder Compounder Caregiver Provides Assist M6 OT- IP Functional Cognition Start: 04/01/20 13:18 Freq: Status: Active Protocol: Document 04/01/20 10:34 [facility] (Rec: 04/01/20 13:30 [facility] [id number]) Cognitive Factors Limiting Selfcare Function Cognitive Ability Level of Alertness Alert Patient Orientation Name,Age,Birthday,Month,Date, Year,Day of Week,Place, Situation Attention Span Ability Capable of Focused Attention, Capable of Sustained Attention Ability to Follow Commands Able to Follow Multi-Step Commands Cognitive Comments Cognitive Assessment Comments Pt able to states all back precautions and incorporate during needs. No cognitive deficits noted. OT- Vision and Hearing OT- Hearing Assessment OT- Hearing Assessment WFL OT- Vision Assessment Visual Acuity Glasses All The Time M7 OT- IP Mobility and Balance Start: 04/01/20 13:18 Freq: Status: Active Protocol: Document 04/01/20 10:34 [facility] (Rec: 04/01/20 13:30 [facility] [id number]) OT-Transfer Assessment Sit to and From Stand Sit to and from Stand Standby Assistance Transfers Transfer Ability Standby Assistance Technique Transfer Destination Bed,Toilet Devices Transfer Assistive Devices Gait Belt,Front Wheeled Walker Comments Mobility Comments SBA and heavy use of arms to come to standing. OT- Balance Assessment Sitting Balance and Reactions Static Sitting Balance Ability Normal Dynamic Sitting Balance Ability Normal Standing Balance and Reactions Static Standing Balance Ability Good M8 OT- IP Objective Assessments Start: 04/01/20 13:18 Freq: Status: Active Protocol: Document 04/01/20 10:34 [facility] (Rec: 04/01/20 13:30 [facility] [id number]) OT Gross Range of Motion Upper Extremity Range of Motion Assessment Within Functional Limits OT Strength Upper Extremity Strength Assessment Within Functional Limits OT-Muscle Tone Assessment Muscle Tone WNL Yes M9 OT- IP Assessment and Plan Start: 04/01/20 13:18 Freq: Status: Active Protocol: Document 04/01/20 10:34 [facility] (Rec: 04/01/20 13:30 [facility] [id number]) OT Summary Assessment and Plan Potential Rehabilitation Potential Excellent Analytic Complexity at Evaluation Low Summary OT Impairments Pain,Functional Mobility, Dressing,Toileting,Bathing, Toilet Transfers,Shower Transfers Progress Towards Goals Progressing Toward Goals Assessment Summary Pt low complexity and main barriers are steps and will need assist for IADl need at home. Pt doing well and able to incorporate back precautions well for ADl needs . Pt has a supportive to assist him at home. To try shower with pt tomorrow pending doctor's orders to shower . Goals Dressing Goal Independent Toileting Goal Independent Bathing Goal Independent Toilet Transfer Goal Independent Shower Transfer Goal Independent Patient/Caregiver Education Goal Demonstrate Post-Op Precautions Days to Meet Goals 5 Frequency of Treatment Frequency Of Treatment Once a Day Treatment Plan OT Treatment Plan ADL Training,Functional Mobility,Patient/Family Education,Discharge Planning Other Treatment Recommendations and Next shower Treatment Focus Discharge Recommendations OT Discharge Recommendations Home with Assistance Home Equipment Needs FWW Transportation Needs at Discharge Private Vehicle
--- NOTE | 2020-04-01 11:19 | CM.IDA ---
Addendum entered by ERIN Julien 04/02/20 11:45: Home today as expected. 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 Therapy has cleared pt for return home w/spouse to assist and pt has planned for home. Met w/patient, introduced role. 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 ERIN Julien
[2020-04-01] MEDS: ACETAMINOPHEN 325 MG TABLET 650 MG PO (12:42)
[2020-04-01] MEDS: AMLODIPINE 5 MG TABLET PO (12:43)
--- NOTE | 2020-04-01 13:28 | PT.IPTN ---
Current Diagnoses Spinal stenosis, lumbar region with neurogenic claudication (03/31/20) Strain of muscle, fascia and tendon of lower back, subsequent encounter (03/31/20) Surgery Performed Operation Date: 03/31/20 11:15 Actual Procedures p L2-S1 laminectomies, L5-S1 instrumented fusion w/bone graft - Silver Odom MD Physical Therapy Treatment Note M2 PT-IP Current Condition Start: 04/01/20 11:17 Freq: NEEDED Status: Active Protocol: Document 04/01/20 09:56 AB (Rec: 04/01/20 11:36 AB [id number]) Physical Therapy Current Condition Current Condition Evaluation Date 04/01/20 Treatment Diagnosis s/p L5S1 fusion; L2-S1 lami; difficulty in walking Onset Date 03/31/20 Precautions Lumbar Precautions Log Roll,No Twisting,Limit Bending,Lifting Restriction of 10 lbs,Gait Belt above Incisional Area M3 PT-IP Subjective Start: 04/01/20 11:17 Freq: NEEDED Status: Active Protocol: Document 04/01/20 13:28 AB (Rec: 04/01/20 14:19 AB [id number]) Subjective Physical Therapy Visit Type Type Treatment Note Visit Start Time 13:28 Visit Stop Time 13:46 Total Visit Minutes 18 Number of MISDRAW HAND Visits 0 Physical Therapy Visit Comments Patient Comments agreeable to do PT Therapy Pain Assessment Pain When Pain Assessed At Rest Pain Present Pain Present Pain Reported Location Back Intensity 4 Pain Management Techniques Apply Cold,Modification of Treatment,Re-positioning, Timing of Activity with Medications M4 PT-IP Mobility and Gait Start: 04/01/20 11:17 Freq: NEEDED Status: Active Protocol: Document 04/01/20 13:28 AB (Rec: 04/01/20 14:19 AB [id number]) PT-Bed Mobility Assessment Rolling Type of Rolling Log Rolling Level of Assist Standby Assistance Supine to Sit Supine to Sit Standby Assistance PT-Transfer Assessment Sit to and From Stand Sit to and from Stand Standby Assistance Equipment Transfer Assistive Device Gait Belt,Front Wheeled Walker Orthotic/Prosthetic Devices or Brace: No Transfers Transfer Destination Chair Transfer Technique ambulated using FWW Transfer Ability Level of Assist Standby Assistance Comments Mobility Comments completed supine to sit SBA; sit to stand SBA and ambulated out in the hallway using FWW SBA towards the stairs. completed up/down steps using bilateral rails SBA. ambulated more ~ 150 ft SBA using FWW. sat on chair and positioned. call light and table placed within reach. spouse came in to visit pt and informed regarding FWW for pt . informed regarding options and stated that she will buy a walker from [employer]. informed pt to bring FWW tomorrow for adjustment and agreed. Left pt with spouse. Gait Assessment Gait Gait Assistance Required: Standby Assistance Distance (Feet) 150 Able to Maintain Weight Bearing Status Yes During Gait Assistive Devices Assistive Device Gait Belt,Front Wheeled Walker Orthotic/Prosthetic Devices or Brace: No Gait Deviations General Gait Pattern Decreased Stride Length, Decreased Feet Clearance, Flexed Trunk Factors Limiting Gait Function Factors Limiting Gait Function Decreased Activity Tolerance, Decreased Strength,Limited Range of Motion,Pain,Poor Balance Stair Climbing Assessment Evaluation Level of Assist On Stairs Standby Assistance Devices Stair Climbing Assistive Devices Left Railing,Right Railing Technique/Endurance Stair Climbing Direction Ascend and Descend Stair Climbing Technique Step to Step Number of Steps Climbed 3 Stair Climbing Set # Repetitions (reps) 2 M5 PT-IP Objective Assessments Start: 04/01/20 11:17 Freq: NEEDED Status: Active Protocol: Document 04/01/20 09:56 AB (Rec: 04/01/20 11:36 AB [id number]) Orientation Orientation/Cognition Level of Alertness Alert Orientation Name,Age,Birthday,Month,Date, Year,Day of Week,Place, Situation Language Function Ability No Deficits Noted Safety Awareness Understands Safety Issues Memory Description No Deficits Noted Gross Range of Motion Lower Extremity ROM Assessment Within Functional Limits Strength Lower Extremity Strength Assessment Within Functional Limits Coordination Assessment Gross Coordination Gross Coordination WNL Sensation Assessment Sensation Gross Sensation WNL Muscle Tone Muscle Tone WNL Yes M6 PT-IP Treatment Start: 04/01/20 11:17 Freq: NEEDED Status: Active Protocol: Document 04/01/20 13:28 AB (Rec: 04/01/20 14:19 AB [id number]) Physical Therapy Treatment Education Education Provided Precautions,Safety M7 PT-IP Assessment and Plan Start: 04/01/20 11:17 Freq: NEEDED Status: Active Protocol: Document 04/01/20 13:28 AB (Rec: 04/01/20 14:19 AB [id number]) PT Summary Assessment and Plan Potential Rehabilitation Potential Good Summary Impairments Pain,ROM,Strength,Balance, Sensation,Bed Mobility, Transfers,Gait,Activity Tolerance Progress Towards Goals Progressing Toward Goals Assessment Summary pt is doing well with mobility using FWW. pt plans to go home with spouse to assist him . spouse will be purchasing FWW at [employer] and will bring it tomorrow for PT to adjust and change rubber back legs. pt may go home when stable. Goals Bed Mobility Goal Independent Transfer Goal Independent,Front Wheeled Walker Gait Goal Independent,Front Wheel Walker Gait Distance 200 Other Goals improve ambulation using SPC SBA 200 ft up/down 5 steps B rails SBA Days to Meet Goals 5 Frequency of Treatment Frequency Of Treatment Twice a Day Treatment Plan Physical Therapy Treatment Plan Bed Mobility Training,Transfer Training,Gait Training, Therapeutic Exercise,Balance Retraining,Post Op Education, Discharge Planning,Hot or Cold Pack,Neuromuscular Re-ed, Coordination Retraining,Manual Therapy Other Recommendations and Next Treatment bed mobility, ambulation, Focus stair climbing Recommendations To Nursing Amount of Assist Needed 1 Person Assist Discharge Recommendations PT Discharge Recommendations Home with Assistance Equipment Needed for Home Before FWW Discharge Transportation Needs at Discharge Private Vehicle
[2020-04-01] MEDS: GABAPENTIN 300 MG CAPSULE PO (20:19)
[2020-04-01] MEDS: SENNOSIDES 8.6 MG TABLET 17.2 MG PO (20:20)
[2020-04-02] VITALS: BP 119/71; PULSE 74; RESP 18; TEMP 36.9; O2SAT 94
[2020-04-02] MEDS: OXYCODONE IR 10 MG TABLET PO ×3 (02:14→11:17)
[2020-04-02 03:45] VITALS: BP 102/66; PULSE 75; RESP 18; TEMP 37.2; O2SAT 98
[2020-04-02 07:25] VITALS: BP 127/69; PULSE 73; RESP 16; TEMP 37.1; O2SAT 97
--- NOTE | 2020-04-02 07:26 | P.PN_ITS ---
Subjective Subjective Date Patient Seen: 04/02/20 Time Patient Seen: 07:26 Interval history: Doing well, walking much better. Good pain control. Exam Vital Signs (past 8 hours): - 04/02/20 00:00 04/02/20 03:45 Temperature 98.5 F 99.0 F Pulse Rate 74 75 Respiratory Rate 18 18 Blood Pressure 119/71 102/66 Pulse Oximetry 94 98 Oxygen Delivery Method Nasal Cannula Oxygen Flow Rate 0 Const Orientation: alert and oriented x3 Back/Spine/Pelvis Other: Minimal dry drainage. 5/5 motor both lower extremities. Objective Labs Result Diagrams: 04/01/20 04:58 [facility] Medical History (Updated 03/25/20 @ 15:54 by Magali Garcia RN) Back pain Bradycardia Cataract (lens) fragments in eye following cataract surgery, bilateral Flu Hypertension Lumbar stenosis with neurogenic claudication Osteoarthritis Strain of lumbar region Surgical History (Updated 03/25/20 @ 16:04 by Magali Garcia RN) History of eye surgery History of total shoulder replacement (~2017) S/P epidural steroid injection Social History household members: spouse lives independently: Yes Smoking Status: Former smoker alcohol intake: current Assessment & Plan Post-op Postoperative Procedures: Procedures Operation Date: 03/31/20 11:15 Actual Procedures Side Surgeon p L2-S1 laminectomies, L5-S1 instrumented fusion w/bone graft Silver Odom MD He is doing great. Plan to discharge home today. Quality VTE Deep Vein Thrombosis/Pulmonary Embolism Present on Admission: No
--- NOTE | 2020-04-02 07:28 | P.DS_ITS ---
History of Present Illness History of Present Illness Date Patient Seen: 04/02/20 Time Patient Seen: 07:28 Chief complaint: IP Narrative: 74-year-old male with progressive claudication symptoms. He has been having increasing pain as well as unsteadiness in his feet for the past several years. He has had an epidural in the past. He has done therapy. Discharge Providers Provider Date of admission: 03/31/20 09:35 Discharge Date: 04/02/20 Primary care physician: Jorden Elizondo MD Consults: 03/31/20 17:27 Consult to Occupational Therapy Evaluate & Treat Comment: Physician Instructions: Evaluate and treat Consult to Physical Therapy Evaluate & Treat Comment: Physician Instructions: Evaluate and Treat Discharge provider: Silver Odom MD Summary Hospital Course Discharge Diagnosis: Lumbar stenosis with radiculopathy Hospital Course: On 03/31/2020 he is brought to the operating room where he underwent a L2 through S1 laminectomy as well as instrumented fusion TLIF at L5- S1. Postoperatively he did very well. He mobilized with physical therapy and was independent with mobility by postoperative day 2. This pain was under good control with oral medications. Status at Discharge Cognitive/behavioral status at discharge: oriented Functional status at discharge: uses cane/walker Overall status at discharge: patient is progressing back to baseline Exam Vital Signs (past 8 hours): - 04/02/20 00:00 04/02/20 03:45 Temperature 98.5 F 99.0 F Pulse Rate 74 75 Respiratory Rate 18 18 Blood Pressure 119/71 102/66 Pulse Oximetry 94 98 Oxygen Delivery Method Nasal Cannula Oxygen Flow Rate 0 Const Orientation: alert and oriented x3 Back/Spine/Pelvis Other: Minimal dry drainage. 5/5 motor both lower extremities. Objective Labs Result Diagrams: 04/01/20 04:58 [facility] Medical History (Updated 03/25/20 @ 15:54 by Magali Garcia RN) Back pain Bradycardia Cataract (lens) fragments in eye following cataract surgery, bilateral Flu Hypertension Lumbar stenosis with neurogenic claudication Osteoarthritis Strain of lumbar region Surgical History (Updated 03/25/20 @ 16:04 by Magali Garcia RN) History of eye surgery History of total shoulder replacement (~2017) S/P epidural steroid injection Social History household members: spouse lives independently: Yes Smoking Status: Former smoker alcohol intake: current Discharge Assessment & Plan Assessment and Plan Assessment: Status post laminectomy and fusion. Plan of Treatment: Discharge home Discharge Plan Discharge Plan Patient Disposition: Home Discharge orders & Medications Prescriptions: New celecoxib [Celebrex] 200 mg Capsule 200 mg PO BID PRN (Reason: pain) Qty: 60 RF: 0 docusate sodium [DOK] 100 mg Capsule 100 mg PO BID PRN (Reason: constipation) Qty: 30 RF: 0 oxycodone 5 mg Tablet See Rx Instructions .ROUTE .COMPLEX PRN (Reason: Pain, Moderate (4-6)) Qty: 30 RF: 0 hydroxyzine pamoate 25 mg Capsule 25 mg PO Q4HR PRN (Reason: spasms) Qty: 20 RF: 0 Continued olmesartan [Benicar] 40 MG tablet 40 mg PO QDAY Qty: 0 RF: 0 amlodipine 5 mg Tablet 5 mg PO DAILY RF: 0 magnesium oxide 400 mg magnesium Tablet 400 mg PO BID RF: 0 turmeric 400 mg Capsule 250 mg PO BID RF: 0 multivitamin Tablet 1 tab PO DAILY RF: 0 ascorbate calcium (vitamin C) 500 mg Tablet 1,000 mg PO DAILY RF: 0 Discontinued diclofenac sodium 50 MG tablet,delayed release (DR/EC) 50 mg PO BID Qty: 0 RF: 0 Follow up/Referrals: Jorden Elizondo MD [Primary Care Provider] - Discharge Data Primary Care Provider: Jorden Elizondo Quality VTE Deep Vein Thrombosis/Pulmonary Embolism Present on Admission: No
[2020-04-02] MEDS: DOCUSATE 100 MG CAPSULE PO (08:37)
[2020-04-02] MEDS: CELECOXIB 200 MG CAPSULE PO (08:37)
[2020-04-02] MEDS: ASCORBIC ACID 500 MG TABLET 1000 MG PO (08:37)
[2020-04-02] MEDS: MAGNESIUM OXIDE 400 MG TABLET PO (08:42)
[2020-04-02] MEDS: AMLODIPINE 5 MG TABLET PO (08:44)
[2020-04-02] MEDS: MULTIVITAMIN 1 TABLET 1 TAB PO (08:44)
--- NOTE | 2020-04-02 09:58 | OT.IP.TRT ---
Current Diagnoses Spinal stenosis, lumbar region with neurogenic claudication (03/31/20) Strain of muscle, fascia and tendon of lower back, subsequent encounter (03/31/20) Surgery Performed Operation Date: 03/31/20 11:15 Actual Procedures p L2-S1 laminectomies, L5-S1 instrumented fusion w/bone graft - Silver Odom MD Occupational Therapy Treatment Note M2 OT-IP Current Condition Start: 04/01/20 13:18 Freq: Status: Active Protocol: Document 04/01/20 10:34 [facility] (Rec: 04/01/20 13:30 [facility] [id number]) Occupational Therapy Current Condition Current Condition Evaluation Date 04/01/20 Treatment Diagnosis S/P L2-S1 laminectomies, L5- S1TLIF Diagnosis Onset Date 03/31/20 Post Operative Precautions Lumbar Precautions Log Roll,No Twisting,Limit Bending,Lifting Restriction of 10 lbs,Gait Belt above Incisional Area M3 OT- IP Subjective and Pain Start: 04/01/20 13:18 Freq: Status: Active Protocol: Document 04/02/20 10:08 [facility] (Rec: 04/02/20 10:18 [facility] [id number]) OT- Subjective Occupational Therapy Visit Type Type Treatment Note Visit Start Time 09:25 Visit Stop Time 09:58 Total Visit Minutes 33 Occupational Therapy Visit Comments Patient Comments Pt needing encourage to shower and then agreed. Patient/Caregiver Goals To go home. OT Pain Assessment Pain When Pain Assessed At Rest Pain Present Pain Present Pain Reported Location Back Intensity 5 Scale Used Numeric (0 - 10) M4 OT- IP ADL's Start: 04/01/20 13:18 Freq: Status: Active Protocol: Document 04/02/20 10:08 [facility] (Rec: 04/02/20 10:18 [facility] [id number]) OT ADL-Dressing General Eval Upper Body Dressing Ability Independent Lower Body Dressing Ability Standby Assistance Comments OT Dressing Comments vc to sit fro LB dressing needs. OT ADL-Toileting General Evaluation Toileting Ability Standby Assistance Comments OT Toileting Comments Pt not able to have a bowel movement. OT ADL-Bathing Bathing Type Bathing Type Shower General Evaluation Bathing Ability Minimal Assistance Areas Needing Assistance Wash/Dry Back Comments OT Bathing Comments Pt having to sit for half of the shower. M5 OT- IP IADL's Start: 04/01/20 13:18 Freq: Status: Active Protocol: Document 04/01/20 10:34 [facility] (Rec: 04/01/20 13:30 [facility] [id number]) OT-Instrumental Activities of Daily Living Home Safety Awareness Awareness of Need for Assistance at Home Good Awareness Ability to Problem Solve Emergency Able to Problem Solve Situations Medication Management Medication Management No Deficits Identified Money Management Money Management No Deficits Identified Meal Preparation Meal Preparation Caregiver Provides Assist Picture Frame Maker Picture Frame Maker Caregiver Provides Assist M6 OT- IP Functional Cognition Start: 04/01/20 13:18 Freq: Status: Active Protocol: Document 04/02/20 10:08 [facility] (Rec: 04/02/20 10:18 [facility] [id number]) Cognitive Factors Limiting Selfcare Function Cognitive Ability Level of Alertness Alert Patient Orientation Name,Age,Birthday,Month,Date, Year,Day of Week,Place, Situation Attention Span Ability Capable of Focused Attention, Capable of Sustained Attention Ability to Follow Commands Able to Follow Multi-Step Commands Cognitive Comments Cognitive Assessment Comments Mainly just needing one cue to sit for lower body needs. M7 OT- IP Mobility and Balance Start: 04/01/20 13:18 Freq: Status: Active Protocol: Document 04/02/20 10:08 [facility] (Rec: 04/02/20 10:18 [facility] [id number]) OT-Transfer Assessment Sit to and From Stand Sit to and from Stand Standby Assistance Transfers Transfer Ability Standby Assistance Technique Transfer Destination Bed,Shower Stall,Toilet Devices Transfer Assistive Devices Gait Belt,Front Wheeled Walker M8 OT- IP Objective Assessments Start: 04/01/20 13:18 Freq: Status: Active Protocol: Document 04/01/20 10:34 [facility] (Rec: 04/01/20 13:30 [facility] [id number]) OT Gross Range of Motion Upper Extremity Range of Motion Assessment Within Functional Limits OT Strength Upper Extremity Strength Assessment Within Functional Limits OT-Muscle Tone Assessment Muscle Tone WNL Yes M9 OT- IP Assessment and Plan Start: 04/01/20 13:18 Freq: Status: Active Protocol: Document 04/02/20 10:08 [facility] (Rec: 04/02/20 10:18 [facility] [id number]) OT Summary Assessment and Plan Potential Rehabilitation Potential Excellent Analytic Complexity at Evaluation Low Summary OT Impairments Pain,Functional Mobility, Toileting,Bathing,Shower Transfers Progress Towards Goals Progressing Toward Goals Assessment Summary Pt able to shower and dress with good follow through of back precautions and only needing one reminder to sit to do LB dressing needs. Pt looking to go home today and has a supportive to assist as needed. Able to assist pt to put together his FWW and adjust at a proper height. Discharge Recommendations OT Discharge Recommendations Home with Assistance Home Equipment Needs FWW Transportation Needs at Discharge Private Vehicle
--- NOTE | 2020-04-02 10:36 | PT.IPTN ---
Current Diagnoses Spinal stenosis, lumbar region with neurogenic claudication (03/31/20) Strain of muscle, fascia and tendon of lower back, subsequent encounter (03/31/20) Surgery Performed Operation Date: 03/31/20 11:15 Actual Procedures p L2-S1 laminectomies, L5-S1 instrumented fusion w/bone graft - Silver Odom MD Physical Therapy Treatment Note M2 PT-IP Current Condition Start: 04/01/20 11:17 Freq: NEEDED Status: Discharge Protocol: Document 04/01/20 09:56 [facility] (Rec: 04/01/20 11:36 [facility] [id number]) Physical Therapy Current Condition Current Condition Evaluation Date 04/01/20 Treatment Diagnosis s/p L5S1 fusion; L2-S1 lami; difficulty in walking Onset Date 03/31/20 Precautions Lumbar Precautions Log Roll,No Twisting,Limit Bending,Lifting Restriction of 10 lbs,Gait Belt above Incisional Area M3 PT-IP Subjective Start: 04/01/20 11:17 Freq: NEEDED Status: Discharge Protocol: Document 04/02/20 10:18 [facility] (Rec: 04/02/20 12:58 [facility] [id number]) Subjective Physical Therapy Visit Type Type Treatment Note Visit Start Time 10:18 Visit Stop Time 10:36 Total Visit Minutes 18 Number of SOLUTIONS DEVELOPER Visits 1 Physical Therapy Visit Comments Patient Comments agreeable to do PT Therapy Pain Assessment Pain When Pain Assessed At Rest Pain Present Pain Present Pain Reported Location Back Intensity 5 Scale Used Numeric (0 - 10) Pain Management Techniques Apply Cold,Re-positioning, Timing of Activity with Medications M4 PT-IP Mobility and Gait Start: 04/01/20 11:17 Freq: NEEDED Status: Discharge Protocol: Document 04/02/20 10:18 [facility] (Rec: 04/02/20 12:58 [facility] [id number]) PT-Transfer Assessment Sit to and From Stand Sit to and from Stand Independent,1 Person Assistance,Use of Upper Extremities Equipment Transfer Assistive Device Gait Belt,Front Wheeled Walker Orthotic/Prosthetic Devices or Brace: No Transfers Transfer Destination Chair Transfer Technique ambulated using FWW Transfer Ability Level of Assist Standby Assistance Comments Mobility Comments Pt in chair upon arrival from therapy reporting 5/10 pain, Independent for sit<>stand from chair w/ FWW. Pt then ambulated ~100 ft to stairs and completed 6 total steps w/ bilateral hand rails SBA w/ cues for sequecning. Pt ambulated additional ~200 ft w / FWW prior to returning back to room and then returned to chair independently. Pt may go home when medically stable. Gait Assessment Gait Gait Assistance Required: Standby Assistance Distance (Feet) 300 Able to Maintain Weight Bearing Status Yes During Gait Assistive Devices Assistive Device Gait Belt,Front Wheeled Walker Orthotic/Prosthetic Devices or Brace: No Gait Deviations General Gait Pattern Decreased Stride Length, Decreased Feet Clearance, Lateral Trunk Lean Factors Limiting Gait Function Factors Limiting Gait Function Decreased Activity Tolerance, Decreased Strength,Limited Range of Motion,Pain,Poor Balance Comments Gait Comments Pt ambulated ~300 total feet w / FWW SBA, verbalized feelings of L sided leg weakness but no LOB or foot drop observed. Stair Climbing Assessment Evaluation Level of Assist On Stairs Standby Assistance Devices Stair Climbing Assistive Devices Left Railing,Right Railing Technique/Endurance Stair Climbing Direction Ascend and Descend Stair Climbing Technique Step to Step Number of Steps Climbed 3 Stair Climbing Set # Repetitions (reps) 2 Comments Stair Climbing Comments Pt ascended/descended 6 total steps w/ step to pattern bilateral hand rails SBA w/ cues for leg sequencing. PT-Balance Assessment Sitting Balance and Reactions Static Sitting Balance Ability Good Dynamic Sitting Balance Ability Good Standing Balance and Reactions Static Standing Balance Ability Good Dynamic Standing Balance Ability Fair Device Used FWW M5 PT-IP Objective Assessments Start: 04/01/20 11:17 Freq: NEEDED Status: Discharge Protocol: Document 04/01/20 09:56 [facility] (Rec: 04/01/20 11:36 [facility] [id number]) Orientation Orientation/Cognition Level of Alertness Alert Orientation Name,Age,Birthday,Month,Date, Year,Day of Week,Place, Situation Language Function Ability No Deficits Noted Safety Awareness Understands Safety Issues Memory Description No Deficits Noted Gross Range of Motion Lower Extremity ROM Assessment Within Functional Limits Strength Lower Extremity Strength Assessment Within Functional Limits Coordination Assessment Gross Coordination Gross Coordination WNL Sensation Assessment Sensation Gross Sensation WNL Muscle Tone Muscle Tone WNL Yes M6 PT-IP Treatment Start: 04/01/20 11:17 Freq: NEEDED Status: Discharge Protocol: Document 04/02/20 10:18 [facility] (Rec: 04/02/20 12:58 [facility] [id number]) Physical Therapy Treatment Education Education Provided Precautions,Safety M7 PT-IP Assessment and Plan Start: 04/01/20 11:17 Freq: NEEDED Status: Discharge Protocol: Document 04/02/20 10:18 [facility] (Rec: 04/02/20 12:58 [place] [id number]) PT Summary Assessment and Plan Potential Rehabilitation Potential Good Summary Impairments Pain,ROM,Strength,Balance, Sensation,Bed Mobility, Transfers,Gait,Activity Tolerance Progress Towards Goals Progressing Toward Goals Assessment Summary Pt able to tolerate ~300 ft ambulation and 6 total steps. Independent to SBA for transfers, ambulation, and stairs. Pt may go home when medically stable. Goals Bed Mobility Goal Independent Transfer Goal Independent,Front Wheeled Walker Gait Goal Independent,Front Wheel Walker Gait Distance 200 Other Goals improve ambulation using SPC SBA 200 ft up/down 5 steps B rails SBA Days to Meet Goals 5 Frequency of Treatment Frequency Of Treatment Twice a Day Treatment Plan Physical Therapy Treatment Plan Bed Mobility Training,Transfer Training,Gait Training, Therapeutic Exercise,Balance Retraining,Post Op Education, Discharge Planning,Hot or Cold Pack,Neuromuscular Re-ed, Coordination Retraining,Manual Therapy Other Recommendations and Next Treatment bed mobility, ambulation, Focus stair climbing Recommendations To Nursing Amount of Assist Needed 1 Person Assist Discharge Recommendations PT Discharge Recommendations Home with Assistance Equipment Needed for Home Before FWW Discharge Transportation Needs at Discharge Private Vehicle
--- NOTE | 2020-04-02 10:44 | PC.NURSE ---
Patient is going to discharge home today. He was given a oxycodone 10mg for discomfort and this works for him well. His dressing to lower back has been changed to a coversite that is water proof. CMS wnl and ppx2. Patient showered with OT and tolerated well.
== END 2020-04-02 11:49 | disposition home or self-care (01) | DRG 455 ==
PROVIDERS: Admitting Provider Orthopaedic Surgery; PCP Internal Medicine; Referring Provider Orthopaedic Surgery; Visit Provider Orthopaedic Surgery
PROC: 0SG30AJ Fusion of Lumbosacral Joint with Interbody Fusion Device, Posterior Approach, Anterior Column, Open Approach (ICD-10-PCS; principal; 2020-03-31 11:15)
DX: M48.062 Spinal stenosis, lumbar region with neurogenic claudication (principal); I10 Essential (primary) hypertension; Z20.822 Contact with and (suspected) exposure to COVID-19
CPT/HCPCS: 36415; 72100; 76000; 85014; 85018; 87635; 94762; 97116; 97161; 97165; 97530; 97535; C1776; C9803; J0330; J0595; J0690; J1100; J2250; J2274; J2405; J2704; J3010

== ENCOUNTER → 2020-06-15 08:36 | Outpatient (CLI) | payer MEDICARE, OTHER, SELFPAY ==
[2020-03-31 17:27] VITALS: BMI 28.3
[2020-06-15 09:15] LABS: Blood Urea Nitrogen 15 mg/dL (9-20); Calcium 9.5 mg/dL (8.4-10.2); Carbon Dioxide 27 mmol/L (22-32); Chloride 104 mmol/L (98-107); Cholesterol 181 mg/dL (140-199); Estimated Glomerular Filt Rate > 60.0 mL/min (>60); Glucose 98 mg/dL (80-110); HDL Cholesterol 37 mg/dL (40-60); HEMOLYSIS < 15 (0-50); LDL Cholesterol Calculated 128 mg/dL (<100); Sodium 137 mmol/L (137-145); Triglycerides 82 mg/dL (35-150)
== END ==
PROVIDERS: PCP Internal Medicine; Referring Provider Internal Medicine; Visit Provider Internal Medicine
DX: I10 Essential (primary) hypertension (principal); E78.2 Mixed hyperlipidemia
CPT/HCPCS: 36415; 80048; 80061

== ENCOUNTER → 2020-06-19 07:41 | Outpatient (CLI) | payer MEDICARE, OTHER, SELFPAY ==
[2020-03-31 17:27] VITALS: BMI 28.3
--- NOTE | 2020-06-19 | DI.ECHO.S_ITS ---
[place] +---------+ [facility] +---------+ : : [address] : : : : [id number] : : : : Phone: [phone]---------+ Echocardiogram Report + + :Name: MICHAEL RUTLEDGE Study Date: 06/19/2020 Height: 69 in : :[facility] ReadingLocation: Weight: 185 lb : : Gender: Male BSA: 2.0 m2 : :: 1945 Age: 74 yrs BP: 143/84 mmHg: :Reason For Study: Mitral Valve- Regurgitation : :Ordering Physician: NORM, : :DINESH Performed By: Corbin Pino : :Referring: DINESH ZHENG : + + Interpretation Summary 1) Normal left ventricular thickness, size, wall motion, and systolic function (EF 55-60%). 2) Normal right ventricular size and function. 3) The left atrium is moderately dilated. 4) There is mild mitral regurgitation. 5) Compared to the Echo done 11/27/2017, mitral regurgitation has improved from mild-moderate to mild on this study (probably due to better BP control). No need for repeat echo for serial monitoring purposes as long as BP is well controlled. Procedure: A two-dimensional transthoracic echocardiogram with color flow and Doppler was performed. The study quality was technically adequate. Comparison is made with the echocardiogram of 11/27/2017. The patient was in sinus bradycardia with heart rates between 49-50 bpm during the exam. Left Ventricle: The left ventricle is normal in size and wall thickness. Left ventricular systolic function is normal. The ejection fraction is estimated to be 55-60%. There are no focal wall motion abnormalities. Diastolic function could not be accurately assessed due to contradictory data. Right Ventricle: The right ventricle is normal in size and function. Atria: The left atrium is moderately dilated. The right atrium is normal in size. There is no Doppler evidence for an interatrial shunt. Mitral Valve: The mitral valve is normal in structure and function. There is mild mitral regurgitation. Aortic Valve: The aortic valve is normal in structure and function. There is no aortic valve stenosis. No aortic regurgitation is present. Tricuspid Valve: The tricuspid valve is normal in structure and function. There is mild tricuspid regurgitation. The right ventricular systolic pressure is estimated to be at least 30 mmHg based on an estimated right atrial pressure of 3 mm Hg. Pulmonic Valve: The pulmonic valve is not well seen, but is grossly normal. There is no pulmonic valvular regurgitation. Great Vessels: The aortic root is normal size. The ascending aorta is at the upper limits of normal in size. The IVC is of normal diameter and collapses greater than 50% with a sniff. This suggests a low right atrial pressure of 3 mm Hg. Pericardium/ Pleura There is no pericardial effusion. There is no pleural effusion. MMode/2D Measurements & Calculations LVIDd: 5.1 cm LVOT diam: 2.4 cm LVIDs: 3.5 cm Ao root diam: 3.6 cm FS: 30.7 % asc Aorta Diam: 3.8 cm IVSd: 1.1 cm LVPWd: 1.1 cm LV viramontes. diameter/BSA (cm/m^2): 2.5 LV sys. diameter/BSA (cm/m^2): 1.8 LA A2 area: 27.2 cm2 RA long axis: 5.7 cm LA A4 area: 24.3 cm2 RA area: 18.5 cm2 LA length (vol): 6.2 cm RA vol: 51.2 ml LA vol: 91.0 ml RA : 25.6 ml/m2 LA vol index: 45.5 ml/m2 TAPSE: 2.3 cm Doppler Measurements & Calculations Ao V2 max: 117.1 cm/sec LVOT Max Bill: 87.7 cm/sec Ao V2 mean: 79.2 cm/sec LV V1 max P.1 mmHg Ao max P.5 mmHg LV V1 VTI: 19.6 cm Ao mean P.8 mmHg ABDON(I,D): 3.8 cm2 Ao V2 VTI: 23.5 cm ABDON(V,D): 3.4 cm2 sev ratio: 0.83 ABDON indexed to BSA (cm^2/m^2): 1.9 MV E max bill: 50.7 cm/sec TR max bill: 259.3 cm/sec MV A max bill: 71.7 cm/sec TR max P.9 mmHg MV E/A: 0.71 PA pr(Accel): 42.2 mmHg Med Peak E' Bill: 4.3 cm/sec E/E' med: 11.7 Lat Peak E' Bill: 8.5 cm/sec E/E' lat: 6.0 E/e' average: 8.9 MV dec time: 0.29 sec SV(LVOT): 88.6 ml Reading Physician:11:58 AM
== END ==
PROVIDERS: PCP Internal Medicine; Referring Provider Internal Medicine; Visit Provider Internal Medicine
DX: I08.1 Rheumatic disorders of both mitral and tricuspid valves (principal)
CPT/HCPCS: 93306

== ENCOUNTER → 2020-10-09 11:59 | Outpatient (CLI) | payer MEDICARE, OTHER, SELFPAY ==
[2020-03-31 17:27] VITALS: BMI 28.3
--- NOTE | 2020-10-09 | DI.MRI.S_ITS ---
PROCEDURE: MR FEMUR LT WO/W CON INDICATIONS: Localized swelling, mass and lump, left lower limb TECHNIQUE: Noncontrast coronal T1 spin echo and STIR, sagittal T1 spin echo with fat saturation and STIR, axial T1 spin echo and T2 fast spin echo with fat saturation. After the administration of contrast, axial/sagittal/coronal T1 spin echo with fat saturation through the left femur/hip . COMPARISON: None. FINDINGS: Image quality: Suboptimal secondary to failure of fat suppression of the superior aspect of the femur/pelvis. Bones: The visualized bone marrow demonstrates normal signal on all sequences. The overlying cortex appears intact. No abnormal intraosseous enhancement. Soft tissues: No soft tissue masses are visualized. There is severe gluteus medius and minimus insertional tendinopathy and partial tear. Associated fluid and soft tissue edema is present. There is atrophy of the gluteus medius and minimus muscles. Trochanteric bursal fluid also present deep to the proximal iliotibial band. Mild left hamstring origin tendinopathy, technically age indeterminate. IMPRESSION: Severe left hip abductor insertional tendinopathy/partial tear, with adjacent fluid and edema. Adjacent trochanteric bursitis also noted. Associated ill-defined reactive enhancement. Atrophy of the left gluteus medius and minimus muscles. No discrete mass or suspicious enhancement. Dictated by: Ranjan Huhges M.D. on 10/09/2020 at 14:22 Approved by: Ranjan Hughes M.D. on 10/09/2020 at 14:30
== END ==
PROVIDERS: PCP Internal Medicine; Referring Provider Internal Medicine; Visit Provider Internal Medicine
DX: R22.42 Localized swelling, mass and lump, left lower limb (principal); S39.013A Strain of muscle, fascia and tendon of pelvis, initial encounter; M70.62 Trochanteric bursitis, left hip
CPT/HCPCS: 73720; A9579

== ENCOUNTER → 2022-02-08 09:57 | Outpatient (CLI) | payer MEDICARE, OTHER, SELFPAY ==
[2020-03-31 17:27] VITALS: BMI 28.3
--- NOTE | 2022-02-08 | DI.RAD.S_ITS ---
PROCEDURE: XR CHEST 2V INDICATIONS: chronic cough TECHNIQUE: 2 views of the chest were acquired. COMPARISON: [facility], , CHEST 2 VIEW, 06/11/2017, 7:58. FINDINGS: Surgical changes and devices: Left shoulder arthroplasty. Lungs and pleura: Lungs demonstrate chronically coarse appearance with bilateral perihilar stranding. There are no acute consolidations or pleural effusions. Mediastinum: Normal heart size and aortic contour. Right perihilar region is slightly prominent, potentially due to crowded vasculature. Bones and chest wall: No suspicious bony abnormalities. Soft tissues appear unremarkable. IMPRESSION: 1. No acute consolidations. 2. There is a background of chronic, likely interstitial appearing lung disease. 3. Right hilar contour prominence. Consider adenopathy or pulmonary artery enlargement. Dictated by: Elaina Angelo M.D. on 02/08/2022 at 12:36 Approved by: Elaina Angelo M.D. on 02/08/2022 at 12:39
== END ==
PROVIDERS: PCP Internal Medicine; Referring Provider Internal Medicine; Visit Provider Internal Medicine
DX: R05.3 Chronic cough (principal)
CPT/HCPCS: 71046

== ENCOUNTER → 2022-05-05 15:25 | Outpatient (CLI) | payer MEDICARE, OTHER, SELFPAY ==
[2020-03-31 17:27] VITALS: BMI 28.3
--- NOTE | 2022-05-05 15:26 | DI.CT.S_ITS ---
PROCEDURE: CT CHEST HIGH RESOLUTION INDICATIONS: Pulmonary fibrosis, unspecified TECHNIQUE: Noncontrast 1.0 and 5.0 mm thick contiguous axial sections from the pulmonary apex to the posterior costophrenic angles, with 7 mm thick coronal and sagittal MIP reformats. 1 mm thick dynamic expiratory images acquired through the upper, mid, and lower lungs. 1.0 mm thick axial sections acquired from the zan to the posterior costophrenic angles in the prone end-inspiration position. For radiation dose reduction, the following was used: automated exposure control, adjustment of mA and/or kV according to patient size. COMPARISON: None. FINDINGS: Image quality: Excellent. Lungs: Peripheral reticular thickening which persists on the prone sequence. There is mild honeycombing. Mild traction bronchiectasis. The central airways are clear. No acute airspace opacity. No air trapping is seen. No mass or significant pulmonary nodules. Pleura: No pleural effusions or pneumothorax. Mediastinum: Heart size is normal. Severe LAD coronary artery calcifications. No pericardial effusion. Thoracic aorta and central pulmonary arteries are normal in size. Esophagus is normal in caliber. Bones and chest wall: Left shoulder arthroplasty. Lumbar spine hardware. No suspicious bony lesions. No vertebral body compression fractures. Abdomen: Visualized upper abdominal solid organs and bowel loops appear normal. Low-density left renal cysts. No adrenal nodule. IMPRESSION: 1. 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 Moderate severity. 2. No acute airspace opacity. Dictated by: Carroll Pascual M.D. on 05/05/2022 at 17:24 Approved by: Carroll Pascual M.D. on 05/05/2022 at 17:29
== END ==
PROVIDERS: PCP Internal Medicine; Referring Provider Internal Medicine; Visit Provider Internal Medicine
DX: J84.10 Pulmonary fibrosis, unspecified (principal)
CPT/HCPCS: 71250

== ENCOUNTER → 2023-01-05 14:54 | Outpatient (CLI) | payer MEDICARE, OTHER, SELFPAY ==
[2020-03-31 17:27] VITALS: BMI 28.3
--- NOTE | 2023-01-05 | DI.ECHO.S_ITS ---
[facility]+ : : [address] : [place] : : : : [id number] : : : : Phone: [phone]+ Echocardiogram Report + + :Name: MICHAEL RUTLEDGE Study Date: 01/05/2023 Height: 69 in : :[facility] ReadingLocation: Weight: 190 lb : : Gender: Male BSA: 2.0 m2 : :: 1945 Age: 77 yrs BP: 158/91 mmHg: :Reason For Study: Dyspnea on Exertion : :Ordering Physician: EARLINE JOSHUA Performed By: Philly Mccormick : :Referring: EARLINE JOSHUA : + + Interpretation Summary 1) Mildly increased left ventricular thickness (concentric) with normal size and low normal systolic function (EF 50-55%). 2) Normal right ventricular size and function. 3) There is mild mitral regurgitation. 4) The right ventricular systolic pressure is estimated to be at least 29 mmHg based on an estimated right atrial pressure of 3 mm Hg. 5) The ascending aorta is mildly enlarged at 4.1cm. 6) Compared to the [facility] done 06/19/2020, LVEF has decreased from 55-60% to 50- 55% on this study and mild ascending aorta enlargement is present on this study. Procedure: A two-dimensional transthoracic echocardiogram with color flow and Doppler was performed. The study quality was technically adequate. Comparison is made with the echocardiogram of 06/19/2020. Left Ventricle: The left ventricle is normal in size. Left ventricular wall thickness is mildly increased. Proximal septal thickening is noted. The ejection fraction is estimated to be 50-55%. There are no focal wall motion abnormalities. Diastolic parameters suggest a relaxation abnormality of the left ventricle, consistent with probable normal filling pressures. Right Ventricle: The right ventricle is normal in size and function. Atria: The left atrium is moderately dilated. Right atrial size is normal. There is no Doppler evidence for an interatrial shunt. Mitral Valve: The mitral valve is normal. There is mild mitral annular calcification. There is no mitral valve stenosis. There is mild mitral regurgitation. Aortic Valve: The aortic valve is trileaflet. The aortic valve opens well. There is no aortic stenosis. There is trace aortic regurgitation. Tricuspid Valve: The tricuspid valve is normal. There is no tricuspid stenosis. There is mild tricuspid regurgitation. The right ventricular systolic pressure is estimated to be at least 29 mmHg based on an estimated right atrial pressure of 3 mm Hg. Pulmonic Valve: The pulmonic valve is not well visualized. There is no pulmonic valvular stenosis. There is trace pulmonic regurgitation. Great Vessels: The aortic root is normal size. The ascending aorta is mildly enlarged. The pulmonary artery is normal size. The IVC is of normal diameter and collapses greater than 50% with a sniff. This suggests a low right atrial pressure of 3 mm Hg. Pericardium/ Pleura There is no pericardial effusion. There is no pleural effusion. MMode/2D Measurements & Calculations LVIDd: 5.1 cm LVOT diam: 2.1 cm LVIDs: 3.4 cm Ao root diam: 3.3 cm FS: 33.3 % asc Aorta Diam: 4.1 cm EPSS: 1.3 cm IVSd: 1.1 cm LVPWd: 1.1 cm LV viramontes. diameter/BSA (cm/m^2): 2.5 LV sys. diameter/BSA (cm/m^2): 1.7 LA A2 area: 27.1 cm2 RA long axis: 5.6 cm LA A4 area: 21.1 cm2 RA area: 13.6 cm2 LA length (vol): 6.4 cm RA vol: 28.2 ml LA vol: 76.3 ml RA : 14.0 ml/m2 LA vol index: 37.8 ml/m2 RVD1 (basal): 3.0 cm LVLs ap4: 6.4 cm LVLd ap2: 7.2 cm TAPSE_phl: 3.0 cm LVLs ap2: 6.5 cm Doppler Measurements & Calculations Ao V2 max: 126.0 cm/sec MV E max bill: 41.8 cm/sec Ao V2 mean: 79.0 cm/sec MV A max bill: 81.3 cm/sec Ao max P.0 mmHg MV E/A: 0.51 Ao mean P.0 mmHg Med Peak E' Bill: 3.9 cm/sec Ao V2 VTI: 28.4 cm E/E' med: 10.7 Lat Peak E' Bill: 8.8 cm/sec E/E' lat: 4.7 E/e' average: 7.7 MV dec time: 0.39 sec TR max bill: 254.5 cm/sec TR max P.1 mmHg PA V2 max: 87.6 cm/sec PA V2 mean: 58.4 cm/sec PA mean P.0 mmHg PA pr(Accel): 38.5 mmHg Reading Physician:04:24 PM
== END ==
PROVIDERS: PCP Internal Medicine; Referring Provider Internal Medicine Pulmonary Disease; Visit Provider Internal Medicine Pulmonary Disease
DX: R06.09 Other forms of dyspnea (principal); I08.1 Rheumatic disorders of both mitral and tricuspid valves; I77.89 Other specified disorders of arteries and arterioles
CPT/HCPCS: 93306

== ENCOUNTER 2023-09-04 08:57 | Day surgery (SDC) | payer MEDICARE, OTHER, SELFPAY ==
[2020-03-31 17:27] VITALS: BMI 28.3
--- NOTE | 2023-09-04 | PATH_ITS ---
[facility] Accession Number: [id number] No. of containers..01 Tissue . 01 Material submitted: . colon - TRANSVERSE COLON POLYPS . 01 Diagnosis: TRANSVERSE COLON POLYPS: Tubular adenomas. RUST 09/06/2023 1539 Local . 01 Electronically signed: . Maurice Quispe MD, Pathologist NPI- [id number] . 01 Gross description: . Received in formalin with two patient identifiers and transverse colon polyp, are two rosales soft tissue fragments, 0.2 to 0.4 cm in greatest dimension. Submitted in A1. ([id number]) /MRV 09/06/2023 1539 Local . 01 Pathologist provided ICD-10: D12.3 . 01 CPT . 448443 Specimen Comment: A courtesy copy of this report has been sent to [phone] Performed at: [address] [id number] MD Maurice Quispe MD Phone: [phone]
[2023-09-04 09:28] VITALS: BP 147/79; PULSE 66; RESP 16; TEMP 36.6; O2SAT 96
[2023-09-04] MEDS: LACTATED RINGERS 1,000 ML 42 ML IV (09:40)
--- NOTE | 2023-09-04 09:40 | PM.HP.1 ---
History of Present Illness History of Present Illness Date Patient Seen: 09/04/23 Time Patient Seen: 09:40 Chief complaint: Colonoscopy Narrative: 77-year-old male who reports a colon polyp history 10 years ago. His last exam 5 years ago was negative. [facility] Medical History Cataract (lens) fragments in eye following cataract surgery, bilateral Bradycardia Hypertension Osteoarthritis Lumbar stenosis with neurogenic claudication Strain of lumbar region Back pain Flu Surgical History History of total shoulder replacement (~2017) History of eye surgery S/P epidural steroid injection Social History household members: spouse lives independently: Yes Smoking Status: Former smoker alcohol intake: current Meds Home Medications and Allergies Home Medications Medication Instructions Recorded Confirmed Type olmesartan 40 mg tablet (Benicar) 40 mg PO QDAY ##0 06/11/17 09/04/23 History amlodipine 5 mg tablet 5 mg PO DAILY 10/11/18 09/04/23 History ascorbate calcium (vitamin C) 500 1,000 mg PO DAILY 03/25/20 09/04/23 History mg tablet magnesium oxide 400 mg PO BID 03/25/20 09/04/23 History multivitamin 1 tab PO DAILY 03/25/20 09/04/23 History turmeric 400 mg capsule 250 mg PO BID 03/25/20 09/04/23 History docusate sodium 100 mg capsule 100 mg PO BID PRN constipation #30 04/02/20 09/04/23 Rx ([facility]) caps hydroxyzine pamoate 25 mg capsule 25 mg PO Q4HR PRN spasms #20 caps 04/02/20 09/04/23 Rx Allergies Allergy/AdvReac Type Severity Reaction Status Date / Time No Known Drug Allergies Allergy Verified 09/04/23 09:20 Review of Systems Review of Systems ROS: Yes All systems reviewed with the patient and are negative except as otherwise documented Exam Vital Signs (past 8 hours): - 09/04/23 09:28 Temperature 97.9 F Pulse Rate 66 Respiratory Rate 16 Blood Pressure 147/79 H Pulse Oximetry 96 Oxygen Delivery Method Room Air Oxygen Delivery Method Room Air Const General: cooperative HENMT Head: normal to inspection Eyes General: appearance normal, both eyes and all related structures Neck Neck: normal visual inspection Chest Chest: normal inspection of the chest Resp Effort & Inspection: normal respiratory effort Cardio Rate: regular rate GI Inspection: normal to inspection Skin General: no rashes or lesions noted Neuro General: patient alert and patient awake Extrem General: normal to inspection and no pedal edema Psych Appearance: grossly normal Assessment & Plan Assessment & Plan narrative: 77-year-old male with a personal history of colon polyps. Surveillance colonoscopy is pursued today.
--- NOTE | 2023-09-04 09:41 | PM.PREOP ---
Pre-operative Note Interval Note History & Physical reviewed/Exam performed by Physician: Yes Changes to H&P: No ASA Class (for procedural sedation): II
[2023-09-04 10:57] VITALS: BP 93/66; PULSE 60; RESP 17; TEMP 36.9; O2SAT 94
--- NOTE | 2023-09-04 10:59 | PM.OP.COLON ---
Operative Date/Time/Diagnoses Date of procedure: 09/04/23 Time of procedure: 10:59 Pre-op diagnosis: Colon polyp history Post-op diagnosis: same Procedure & Clinicians Study performed: Colonoscopy with cold snare and cold forceps polypectomy Same procedure as scheduled: Yes Indications: Colon polyp history Surgeon: Mukund Sanchez Procedure Notes SCOAP/Timeout: Done Procedure in detail: After the risks and benefits were explained, written and verbal informed consent was obtained. The patient was brought into the procedure room and placed into the left lateral decubitus position. Please see anesthesia notes for sedation details. Digital rectal examination was accomplished. The scope was introduced into the patient and advanced under direct visualization to the cecum as identified by the appendiceal orifice and ileocecal valve. The scope was slowly withdrawn to carefully examine the mucosa for any defects or lesions. Comprehensive imaging was accomplished throughout the rectum including the dentate line. The colon was decompressed, the scope was then removed from the patient who tolerated the procedure well. Adult colonoscope Bowel prep adequate Scope withdrawal time: 14 minutes Sedation minutes: 20 Complications: none Impression: In the transverse colon there was an approximately 5-6 mm sessile polyp removed with cold snare. There was a smaller 3 mm polyp nearby removed with cold forceps. No additional significant pathology was appreciated throughout. Endoscopic diagnosis Small polyps x2 Post-procedure Plan for aftercare: 1. Await histology. 2. Repeat surveillance colonoscopy can be considered contingent on histopathology results. Disposition: PACU
[2023-09-04 11:02] VITALS: BP 101/63; PULSE 61; RESP 17; O2SAT 92
[2023-09-04 11:07] VITALS: BP 91/59; PULSE 63; RESP 12; O2SAT 96
[2023-09-04 11:14] VITALS: BP 116/81; PULSE 68; RESP 14; O2SAT 95
== END 2023-09-04 11:27 | disposition home or self-care (01) ==
PROVIDERS: PCP Internal Medicine; Referring Provider Internal Medicine Gastroenterology; Visit Provider Internal Medicine Gastroenterology
PROC: 0DJD8ZZ Inspection of Lower Intestinal Tract, Via Natural or Artificial Opening Endoscopic (ICD-10-PCS; CPT 45378; principal; 2023-09-04 10:00)
DX: Z12.11 Encounter for screening for malignant neoplasm of colon (principal); Z86.010 Personal history of colon polyps; D12.3 Benign neoplasm of transverse colon
CPT/HCPCS: 45385; 45380; J2704